=== PATIENT | female | born 1980 | race Caucasian/White ===

== ENCOUNTER 2017-01-04 12:23 | Emergency (ER) | payer SELFPAY ==
[2017-01-04] MEDS ORDERED: Sodium Chloride 0.9% 1,000 ML IV ONE (13:29)
[2017-01-04] MEDS ORDERED: Sodium Chloride 0.9% 10 ML Syringe FLUSH PRN (13:29)
--- NOTE | 2017-01-04 17:01 | EDM.PDOC ---
ED HPI GENERAL MEDICAL PROBLEM - General Chief Complaint: Gastrointestinal Problem Stated Complaint: LIVER FAILURE NAUSEA BODY ACHES Time Seen by Provider: 01/04/17 13:10 Source of Information: Reports: Patient History Limitations: Reports: No Limitations - History of Present Illness INITIAL COMMENTS - FREE TEXT/NARRATIVE: 36-year-old female presents for nausea and body aches. Patient is from [place]. She is visiting [place] for her grandmother's 90th birthday. Patient currently complains of abdominal discomfort, bloating and nausea. Patient reports that she was diagnosed with end-stage liver failure about one month ago. She was hospitalized in [place]. Reports when she left [place] on 12-31-16 her hemoglobin was 7.9 and hematocrit was 22.6. She reports that she had a full workup in [place] to determine the cause of her liver failure. She states that so far has been attributed to NSAIDs. She also reports that she has autoimmune diseases, psoriatic arthritis and spinal arthritis. Patient reports that her foot symptoms for started about 1 month ago. Reports that she had melena and hematochezia. She states that she was jaundiced. She went to her primary care provider who instructed her to go to the hospital. She can't have a total bilirubin of 51 and an elevated AST. She was also diagnosed with hyponatremia and found to have a sodium of 119. Patient reports that she's had 2 paracentesis. Reports that her weight has been up to 170 prior to the paracentesis. States she is around 140s lbs today which is a more normal weight for her. Ports that she had an upper endoscopy and esophageal varices were banded. Patient reports she is to fly home on Friday. She has GI follow-up on Friday. She is here today in the ER requesting that her labs be checked. She is concerned about her hemoglobin and her sodium. Patient states that she has been having about 4-5 darker stools per day but no obvious hematochezia or melena that she had earlier. She is reports some sharp shooting pains into her abdomen. Denies any hemoptysis. States that she has been feeling more fatigued and run down recently. She also reported weakness. Patient states that she used to drink about 1 or 2 glasses of wine about 4 to 5 times a week. She states that since being diagnosed with liver failure she no longer drinks alcohol. She is requesting that we check her labs today. She is open to any intervention if we find necessary but she would like to delay any further intervention if possibly until she returns to [place]. Upper Epigastric Pain Score (Numeric/FACES): 2 - Related Data Allergies Allergy/AdvReac Type Severity Reaction Status Date / Time No Known Allergies Allergy Verified 01/04/17 12:47 Home Meds: Home Meds Famotidine 10 mg PO BID 01/04/17 [History] Furosemide [Lasix] 20 mg PO BID 01/04/17 [History] Milk Thistle 150 mg PO BID 01/04/17 [History] Multivitamin [Multivitamins] 1 tab PO DAILY 01/04/17 [History] [place]-3 Fatty Acids [[place]-3] 1 tab PO DAILY 01/04/17 [History] Omeprazole 20 mg PO DAILY 01/04/17 [History] Potassium Chloride 20 meq PO BID 01/04/17 [History] Propranolol HCl [Propranolol] 10 mg PO BID 01/04/17 [History] S-Adenosylmethionine Sul Tosyl [Same] 400 mg PO DAILY 01/04/17 [History] Spironolactone 50 mg PO BID 01/04/17 [History] Sucralfate 1 gm PO BID PRN 01/04/17 [History] Past Medical History - Past Surgical History HEENT Surgical History: Reports: Tonsillectomy Social & Family History - Family History Neurological: Reports: CVA - Tobacco Use Smoking Status *Q: Former Smoker Used Tobacco, but Quit: Yes Month Tobacco Last Used: november - Caffeine Use Caffeine Use: Reports: Tea - Recreational Drug Use Recreational Drug Use: Yes Recreational Drug Type: Reports: Marijuana/Hashish ED ROS GENERAL - Review of Systems Review Of Systems: See Below Constitutional: Reports: Malaise, Weakness, Fatigue. Denies: Fever Respiratory: Denies: Shortness of Breath Cardiovascular: Denies: Chest Pain GI/Abdominal: Reports: Abdominal Pain, Diarrhea (reports 4-5 darker stools per day), Nausea. Denies: Black Stool, Bloody Stool, Hematemesis, Hematochezia, Melena, Vomiting Neurological: Denies: Syncope ED EXAM, GI/ABD - Physical Exam Exam: See Below Exam Limited By: No Limitations General Appearance: Alert, WD/WN, No Apparent Distress Throat/Mouth: Normal Inspection, Normal Voice, No Airway Compromise Respiratory/Chest: No Respiratory Distress, Lungs Clear, Normal Breath Sounds Cardiovascular: Normal Peripheral Pulses, Regular Rate, Rhythm, No Murmur GI/Abdominal Exam: Normal Bowel Sounds, Distended (ascities present) Rectal (Female) Exam: Deferred (will likey be heme + due to recent banding) Neurological: Alert, Oriented, Normal Cognition Psychiatric: Normal Affect, Normal Mood Skin Exam: Warm, Dry, Jaundice Course - Vital Signs Last Recorded V/S: Last Vital Signs Temp 36.1 C 01/04/17 12:42 Pulse 75 01/04/17 17:10 Resp 19 01/04/17 17:10 BP 97/55 L 01/04/17 17:10 Pulse Ox 100 01/04/17 17:10 - Orders/Labs/Meds Labs: Laboratory Tests 01/04/17 01/04/17 01/04/17 Range/Units 13:25 14:05 14:05 WBC 6.85 (3.98-10.04) K/mm3 RBC 2.22 L (3.98-5.22) M/mm3 Hgb 7.3 L* (11.2-15.7) gm/L Hct 21.1 L (34.1-44.9) % MCV 95.0 H (79.4-94.8) fl MCH 32.9 H (25.6-32.2) pg MCHC 34.6 (32.2-35.5) g/dl RDW Std Deviation 50.4 H (36.4-46.3) fL Plt Count 301 (182-369) K/mm3 MPV 8.6 L (9.4-12.3) fl Neutrophils % (Manual) 67 H (40-60) % Band Neutrophils % 0 (0-10) % Lymphocytes % (Manual) 16 L (20-40) % Atypical Lymphs % 0 % Monocytes % (Manual) 11 H (2-10) % Eosinophils % (Manual) 4 (0.7-5.8) % Basophils % (Manual) 2 H (0.1-1.2) Platelet Estimate Adequate Plt Morphology Comment Normal Polychromasia 1+ slight Hypochromasia 2+ moderate Poikilocytosis 2+ moderate Microcytosis 2+ moderate Target Cells 2+ moderate RBC Morph Comment Not Reportable PT (8.0-13.0) SECONDS INR APTT (22-36) SECONDS Sodium 132 L (136-145) mEq/L Potassium 3.6 (3.5-5.1) mEq/L Chloride 98 (98-107) mEq/L Carbon Dioxide 24 (21-32) mEq/L Anion Gap 13.6 (5-15) BUN 8 (7-18) mg/dL Creatinine 0.8 (0.55-1.02) mg/dL Est Cr Clr Drug Dosing 83.95 mL/min Estimated GFR (MDRD) > 60 (>60) mL/min BUN/Creatinine Ratio 10.0 L (14-18) Glucose 110 H (74-106) mg/dL Calcium 8.1 L (8.5-10.1) mg/dL Magnesium 1.6 L (1.8-2.4) mg/dl Total Bilirubin 3.9 H (0.2-1.0) mg/dL Direct Bilirubin 3.40 H (0.0-0.2) mg/dl AST 76 H (15-37) U/L ALT 41 (14-59) U/L Alkaline Phosphatase 108 (46-116) U/L Ammonia (11-32) umol/L Total Protein 6.0 L (6.4-8.2) g/dl Albumin 1.7 L (3.4-5.0) g/dl Globulin 4.3 gm/dL Albumin/Globulin Ratio 0.4 L (1-2) Lipase 234 (73-393) U/L Urine Color Yellow (Yellow) Urine Appearance Slt cloudy H (Clear) Urine pH 8.0 (5.0-8.0) Ur Specific Ste[place] 1.020 (1.005-1.030) Urine Protein Negative (Negative) Urine Glucose (UA) Negative (Negative) Urine Ketones Negative (Negative) Urine Occult Blood Negative (Negative) Urine Nitrite Negative (Negative) Urine Bilirubin Negative (Negative) Urine Urobilinogen 1.0 (0.2-1.0) Ur Leukocyte Esterase Negative (Negative) 01/04/17 01/04/17 Range/Units 14:05 16:30 WBC (3.98-10.04) K/mm3 RBC (3.98-5.22) M/mm3 Hgb (11.2-15.7) gm/L Hct (34.1-44.9) % MCV (79.4-94.8) fl MCH (25.6-32.2) pg MCHC (32.2-35.5) g/dl RDW Std Deviation (36.4-46.3) fL Plt Count (182-369) K/mm3 MPV (9.4-12.3) fl Neutrophils % (Manual) (40-60) % Band Neutrophils % (0-10) % Lymphocytes % (Manual) (20-40) % Atypical Lymphs % % Monocytes % (Manual) (2-10) % Eosinophils % (Manual) (0.7-5.8) % Basophils % (Manual) (0.1-1.2) Platelet Estimate Plt Morphology Comment Polychromasia Hypochromasia Poikilocytosis Microcytosis Target Cells RBC Morph Comment PT 16.7 H (8.0-13.0) SECONDS INR 1.49 APTT 37 H (22-36) SECONDS Sodium (136-145) mEq/L Potassium (3.5-5.1) mEq/L Chloride (98-107) mEq/L Carbon Dioxide (21-32) mEq/L Anion Gap (5-15) BUN (7-18) mg/dL Creatinine (0.55-1.02) mg/dL Est Cr Clr Drug Dosing mL/min Estimated GFR (MDRD) (>60) mL/min BUN/Creatinine Ratio (14-18) Glucose (74-106) mg/dL Calcium (8.5-10.1) mg/dL Magnesium (1.8-2.4) mg/dl Total Bilirubin (0.2-1.0) mg/dL Direct Bilirubin (0.0-0.2) mg/dl AST (15-37) U/L ALT (14-59) U/L Alkaline Phosphatase (46-116) U/L Ammonia 13 (11-32) umol/L Total Protein (6.4-8.2) g/dl Albumin (3.4-5.0) g/dl Globulin gm/dL Albumin/Globulin Ratio (1-2) Lipase (73-393) U/L Urine Color (Yellow) Urine Appearance (Clear) Urine pH (5.0-8.0) Ur Specific Ste[place] (1.005-1.030) Urine Protein (Negative) Urine Glucose (UA) (Negative) Urine Ketones (Negative) Urine Occult Blood (Negative) Urine Nitrite (Negative) Urine Bilirubin (Negative) Urine Urobilinogen (0.2-1.0) Ur Leukocyte Esterase (Negative) Meds: Medications Discontinued Medications Generic Name Dose Route Start Last Admin Trade Name Marina PRN Reason Stop Dose Admin Sodium Chloride 1,000 mls @ 100 mls/hr 01/04/17 13:29 01/04/17 14:12 Normal Saline IV 01/04/17 23:28 100 mls/hr ONETIME ONE Administration Sodium Chloride 10 ml 01/04/17 13:29 01/04/17 14:05 Saline Flush FLUSH 10 ml ASDIRECTED PRN Administration Keep Vein Open - Re-Assessments/Exams Free Text/Narrative Re-Assessment/Exam: 01/04/17 16:34 Labs returned: Of concern her hemoglobin has dropped to 7.3 Total bilirubin is 3.9. Patient has brought up recent labs on her phone she had on 12-31-16. Hgb was 7.9. She reports her bilirubin has been much higher and she is happy with 3.1 today. I am concerned she needs a blood transfusion. I discussed the case with Dr. Escobar, GI religious education coordinator for [facility]. He recommended we check an ammonia level and if < 50 she would be ok to go home. He was encouraged by her labs. Since she is not actively bleeding at this time, transfusion is not necessary. Given her recent esophageal banding she will likely have heme + stool. Advised we could give blood if the patient is feeling symptomatic, however, the blood may cause the esophageal varicosities to engorge. He felt a blood pressure in the 90s was ok for her, likely chronic. [facility] follow-up on Friday was appropriate. I discussed this with the patient. Offered her transfusion as she is fatigues and weak. She would like to do the transfusion in [place] if is not necessary at this time. She agrees to have her ammonia checked, states it has been normal in the past. 01/04/17 17:00 Ammonia returned at 13. Will discharge home. Departure - Departure Time of Disposition: 17:00 Disposition: Home, Self-Care 01 Condition: Fair Clinical Impression: Liver failure, Anemia - Discharge Information Instructions: Anemia, Nonspecific, Liver Failure Referrals: PCP,Not In Area [Primary Care Provider] - Forms: ED Department Discharge Additional Instructions: Rest. Continue with your current plan of care. Please return to the ER if your symptoms change or worsen. Follow-up with the GI specialist this week as planned.
== END 2017-01-04 17:15 | disposition home or self-care (01) ==
LOC: JD.ED 12:23
DX: K72.90 Hepatic failure, unspecified without coma (principal); D64.9 Anemia, unspecified; Z87.891 Personal history of nicotine dependence; Z79.899 Other long term (current) drug therapy
CPT/HCPCS: 36415; 80053; 81003; 82140; 82248; 83690; 83735; 85025; 85610; 85730; 96360; 96361; 99284; J7040; J7050